=== PATIENT | female | born 1970 | race Hispanic/Latino ===

== ENCOUNTER → 2021-09-28 | Outpatient (CLI) | payer BC | LOC: MAMMO 08:51 | PROVIDERS: ATTEND Internal Medicine | DX: Z12.31 Encounter for screening mammogram for malignant neoplasm of breast (principal) | CPT/HCPCS: 77067 ==

== ENCOUNTER → 2022-01-11 | Outpatient (CLI) | payer BC ==
[~2022-01-11] MED LIST: LIDOCAINE HCL 1% LOCAL INJ 20 ML VIAL ONE
[2022-01-11 12:05] LABS: INR 0.83; PROTHROMBIN TIME 12.2 seconds (11.9-14.5)
[2022-01-11 15:00] LABS: APPEARANCE,CSF CLEAR (CLEAR); COLOR,CSF COLORLESS (COLORLESS); TUBE NUMBER 3; WHITE BLOOD CELL,CSF 0 cells/uL (0-5)
== END ==
LOC: DX 11:21
PROVIDERS: ATTEND Emergency Medicine
DX: H47.10 Unspecified papilledema (principal)
CPT/HCPCS: 36415; 61050; 62328; 77003; 82945; 84157; 85014; 85049; 85610; 85730; 87070; 87205; 89051; J2001